=== PATIENT | male | born 1970 | race Hispanic/Latino ===

== ENCOUNTER → 2025-09-21 | Outpatient (CLI) | payer BC ==
[~2025-09-21] MED LIST: GADOTERATE MEGLUMINE 10 MMOL/20 ML VIAL IV ONE
--- NOTE | 2025-09-21 22:30 | HMCIMG ---
EXAM: MR Pituitary Gland/Sella Turcica with and without Intravenous Contrast. CLINICAL HISTORY: E23.0 Hypopituitarism. TECHNIQUE: Magnetic resonance images of the sella turcica and pituitary gland were obtained in multiple planes before and after intravenous contrast. Series acquired: 3 - SAG T1 SE - TR: 583.3 - TE: 13.0 - ET: 1.0 - Thk: 5.0 5 - AX T2 FSE - TR: 5879.0 - TE: 99.4 - ET: 24.0 - Thk: 5.0 6 - AX T2 FLAIR - TR: 51626.0 - TE: 93.9 - ET: 16.0 - Thk: 5.0 7 - AX DWI - TR: 4874.0 - TE: 76.6 - ET: 1.0 - Thk: 5.0 8 - AX T2* GRE (TRAUMA OR BLEED) - TR: 516.7 - TE: 10.0 - ET: 1.0 - Thk: 5.0 9 - AX T1 FSE - TR: 481.0 - TE: 9.4 - ET: 3.0 - Thk: 5.0 10 - SAG T1 FSE 3MM - TR: 590.0 - TE: 10.4 - ET: 7.0 - Thk: 3.0 11 - COR T2 PROPELLER 3MM - TR: 3195.4 - TE: 142.0 - ET: 32.0 - Thk: 3.0 12 - COR T1 FSE 3MM - TR: 597.0 - TE: 10.5 - ET: 7.0 - Thk: 3.0 13 - COR DYNAMIC SELLA - TR: 450.0 - TE: 14.1 - ET: 7.0 - Thk: 3.0 14 - G+ COR T1 FSE 3MM - TR: 660.0 - TE: 10.5 - ET: 8.0 - Thk: 3.0 15 - G+ SAG T1 FSE 3MM - TR: 653.0 - TE: 10.4 - ET: 8.0 - Thk: 3.0 16 - G+ AX T1 FSE 3MM - TR: 533.0 - TE: 10.5 - ET: 6.0 - Thk: 3.0 17 - G + AX T1 FSE - TR: 675.0 - TE: 9.4 - ET: 4.0 - Thk: 5.0 19 - G+ COR T1 SE - TR: 516.7 - TE: 23.0 - ET: 1.0 - Thk: 5.0 700 - APPARENT DIFFUSION COEFFICIENT (MM2/S) - TR: 4874.0 - TE: 76.6 - ET: 1.0 - Thk: 5.0 701 - EXPONENTIAL APPARENT DIFFUSION COEFFICIENT - TR: 4874.0 - TE: 76.6 - ET: 1.0 - Thk: 5.0 CONTRAST: Administered. COMPARISON: None provided. FINDINGS: SELLA TURCICA: A lobulated sellar mass measuring 20 ??? 17 ??? 24 mm (AP ??? TR ??? CC) centered in the sella with superior extension into the suprasellar cistern. The lesion indents and elevates the optic chiasm. Signal characteristics: predominantly isointense to bird matter on T1- and T2-weighted images with focal internal heterogeneity; no susceptibility to suggest hemorrhage or calcification on T2*; no restricted diffusion on DWI/ADC. Dynamic post-contrast imaging shows hypo???to heterogeneous early enhancement relative to normal gland with progressive fill-in on delayed phases. The [place] pituitary gland and infundibulum are not separately identified from the mass. There is focal rarefaction/erosion of the sellar floor over a span of 12 mm with early inferior extension into the sphenoid sinus. OPTIC CHIASM: Effaced and mildly superiorly displaced by the suprasellar component; no intrinsic signal abnormality identified. CAVERNOUS SINUSES: Tumor extends laterally into both cavernous sinuses with carotid encasement: right internal carotid artery encased over approximately 300??? and left internal carotid artery over approximately 180???. No intraluminal extension or flow-void interruption. The cavernous sinus venous flow-voids remain visible. SUPRASELLAR SINUS: Suprasellar cistern partially effaced by the mass. No discrete hypothalamic or third ventricular mass. SINUSES AND MASTOIDS: Mucosal thickening within the sphenoid sinus adjacent to the eroded sellar floor and within the posterior ethmoid air cells. Mastoid air cells are clear. BONES: Osseous remodeling of the sella with focal thinning/erosion of the sellar floor as above; no aggressive marrow-replacing lesion. ADDITIONAL INTRACRANIAL STRUCTURES (as included): Age-appropriate diffuse cerebral volume loss without focal parenchymal signal abnormality on T2/FLAIR. No extra-axial collection. No acute hemorrhage or infarct. Ventricles and basal cisterns are age-appropriate in size. IMPRESSION: 1. 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 2. Mass effect on optic chiasm with superior displacement and indentation. No intrinsic signal abnormality of the optic chiasm. 3. Bilateral cavernous sinus invasion: right internal carotid artery encasement 300???, left internal carotid artery 180???. Cavernous sinus venous flow-voids remain visible. 4. Focal erosion of sellar floor over a 12 mm span with early inferior extension into sphenoid sinus. 5. No evidence of hemorrhage, calcification, or restricted diffusion within the mass. 6. Mucosal thickening in sphenoid sinus adjacent to eroded sellar floor and in posterior ethmoid air cells. 7. Age-appropriate diffuse cerebral volume loss without focal parenchymal signal abnormality. /Goode
== END | disposition home or self-care (01) ==
LOC: RAH 13:59
PROVIDERS: ATTEND Internal Medicine
DX: R90.89 Other abnormal findings on diagnostic imaging of central nervous system (principal); E23.0 Hypopituitarism; J34.89 Other specified disorders of nose and nasal sinuses
CPT/HCPCS: 70553; A9575